=== PATIENT | female | born 1965 | race Caucasian/White ===

== ENCOUNTER 2018-01-07 09:27 | Day surgery (SDC) | payer OTHER ==
[~2018-01-07] VITALS: Ht 162.6 cm; Wt 68.0 kg
[~2018-01-07 09:27] MED LIST: LABETALOL HCL100 MG PO; LANTUS 3 M100 UNITS1 SC; LIPITOR10 MG PO; LYRICA150 MG PO; NABI650T PO; REQUIP0.5 MG PO; ROCALTROL0.25 MCG PO; TYLENOL EXTRA500 MG PO; VITAMIN D32000 UNI1 PO
[2018-01-07 10:19] LABS: CHLORIDE 110 mEq/L (99-109); POTASSIUM 5.1 mEq/L (3.7-5.4); SODIUM 141 mEq/L (136-147)
[2018-01-07 10:20] LABS: GLUCOSE 109 mg/dL (70-99)
[2018-01-07 10:24] LABS: CREATININE 5.2 mg/dL (0.6-1.3); GFR ESTIMATE (CALCULATED) 9 mL/min/
[2018-01-07 10:25] LABS: UREA NITROGEN (BUN) 88 mg/dL (9-23)
[2018-01-07 10:33] VITALS: BP 121/63
[2018-01-07] MEDS ORDERED: NORCO 5/3251 TABLET PO (15:04)
[2018-01-07 16:48] VITALS: BP 144/67
[2018-01-07 17:25] VITALS: BP 133/65
== END 2018-01-07 17:30 | disposition home or self-care (01) ==
LOC: SDC 09:27
PROVIDERS: Surgery
DX: I12.0 Hypertensive chronic kidney disease with stage 5 chronic kidney disease or end stage renal disease (principal); E11.22 Type 2 diabetes mellitus with diabetic chronic kidney disease; N18.6 End stage renal disease; E78.00 Pure hypercholesterolemia, unspecified; K21.0 Gastro-esophageal reflux disease with esophagitis; D63.1 Anemia in chronic kidney disease
CPT/HCPCS: 80048; 81025; 82948; 93005; J0690; J1170; J1644; J2250; J2405; J2765; J3010